=== PATIENT | male | born 1965 | race Caucasian/White ===

== ENCOUNTER 2018-04-27 05:40 | Day surgery (SDC) | payer BC ==
[~2018-04-27] VITALS: Ht 175.3 cm; Wt 83.9 kg
[~2018-04-27 05:40] MED LIST: IBUPROFEN200 M1 OR; KEFLEX500 M1 PO; LORTAB 10-325 M1 TAB PO; PERCOCET 5/325M1 TAB PO; SILVADENE1 % EX; [UNRECOGNIZED DRUG - CODE] PO
[2018-04-27] MEDS ORDERED: PERCOCET 5/325M1 TAB PO (09:32)
[2018-04-27 09:42] VITALS: BP 130/83
== END 2018-04-27 09:55 | disposition home or self-care (01) | DRG 352 ==
LOC: ORM 05:40
PROVIDERS: ATTEND Surgery
PROC: 0YU50JZ Supplement Right Inguinal Region with Synthetic Substitute, Open Approach (ICD-10-PCS; principal; 2018-04-27)
PROC: 0VBG0ZZ Excision of Left Spermatic Cord, Open Approach (ICD-10-PCS; 2018-04-27)
DX: K40.90 Unilateral inguinal hernia, without obstruction or gangrene, not specified as recurrent (principal); D17.6 Benign lipomatous neoplasm of spermatic cord
CPT/HCPCS: C9290; J0131